=== PATIENT | male | born 1975 | race Caucasian/White ===

== ENCOUNTER 2023-11-24 13:39 | Emergency (ER) | payer MEDICAID, SELFPAY ==
[2023-11-24 13:49] VITALS: BP 123/74; PULSE 89; RESP 16; TEMP 37; O2SAT 99; BMI 22.3
--- NOTE | 2023-11-24 14:36 | XR_ITS ---
Patient: JULIAN LANE Facility:?[facility] Patient ID:?[id number] Site Patient ID:?[id number]. Site :?[id number] Study:?XRay-Extremity Left HAND-11/24/2023 2:48:27 PM Ordering Physician:?DR. BECERRA Final Report: Indication: Bruising and snuffbox and little finger Technique: Three views Comparison: None Findings/Impression: Bones: No evidence of acute fracture. Ossification adjacent to the base of the proximal phalanx of the left 3rd digit. Differential includes ossicle or old avulsion fragment. Joint spaces: Unremarkable. Soft tissues: Unremarkable. Dictated by Gene Gomez MD @ 11/24/2023 3:04:52 PM Signed by:?Gene Gomez MD @11/24/2023 3:04:52 PM (Electronic Signature)
--- NOTE | 2023-11-24 14:36 | ED_ITS ---
HPI - General Adult General Time Seen by Provider: 14:37 Date Seen: 11/24/23 Chief complaint: Extremity Pain/Injury, Upper Stated complaint: L hand pinky/palm discolored and cold-no trauma Time Seen by Provider: 11/24/23 14:24 Source: patient, family, RN notes reviewed and old records reviewed Mode of arrival: ambulatory Limitations: no limitations History of Present Illness HPI narrative: 48-year-old male who comes in today with discoloration of the left hand and left small finger along with cold finger. Patient notes for about a week he has had some bruising around the base of the thumb on the left, no known injury. Today noted that the 5th finger felt cold and was discolored, came to the emergency department. No known trauma, no forceful gripping or grasping that he can think of, no other injuries. No other bruising or bleeding elsewhere Exam Narrative: Exam Narrative: General: well nourished , NAD Head: Atraumatic and normocephalic ENT: External ears and external nose are normal Eyes: Conjunctiva clear, pupils are equal reactive, external ocular motions are intact Neck: Full spontaneous range of motion of the neck Lungs: No respiratory distress Musculoskeletal: No tenderness or deformity. Radial and ulnar pulses on the left are intact. Neurologic: No gross focal neurologic deficits Skin: Brownish purple discoloration on the dorsum of the left hand overlying the 2nd and 3rd metacarpals as well as 1st webspace. On the palmar surface of the hand, there is brownish purple discoloration over the thenar eminence with tenderness between the 2nd and 3rd metacarpals. The 5th finger is purplish discolored with capillary refill less than 2 seconds, sensation intact. Psych: Mood and affect are appropriate Const: Vital Signs, click to edit/add: Vital Signs - 24 hr 11/24/23 13:49 Temperature 98.6 F Pulse Rate [Left P ulse Oximeter] 89 Respiratory Rate 16 Blood Pressure [Ri ght Upper Arm] 123/74 Pulse Oximetry 99 Oxygen Delivery Me thod Room Air Course Course ED Course: Patient seen and examined, prior records reviewed. Patient complains of discoloration swelling of the left hand the around the thenar eminence and also of the left 5th finger. On exam, there appears to be some brownish purple disco loration on the palmar and dorsal surface of the hand ulnar aspect which looks consistent with old bruising or deep hematoma that is coming to the surface. The left finger is purplish discolored although capillary refill is less than 2 seconds and sensation is intact, there is no tenderness. It is little bit cooler than the right which may be due to bruising and swelling. X-rays are ordered but no history of trauma. If x-rays are negative, patient can be discharged with continued outpatient follow-up. Consider Raynaud's phenomenon but patient has no pallor nor cyanosis, did clarify with patient the demand when his finger felt cold it was not pale. Reevaluation(s) Time of Reevaluation #1: 15:00 Reevaluation #1: X-ray of the hand independently interpreted by me negative for acute findings. Patient is stable for discharge. Patient with discoloration of the left hand and left 5th finger. Consider Raynaud's phenomenon but never had pallor in the emergency department appears more purplish than cyanotic. No tenderness or history of trauma but does appear bruised. Patient may have had a spontaneous bleed of the intra thenar vasculature causing bruising on the dorsal surface some palmar aspect of the left hand. Patient is stable for discharge with outpatient follow-up. Vital Signs Vital signs: Initial Vital Signs Temperature 98.6 F 11/24/23 13:49 Temperature Source Temporal Artery Scan 11/24/23 13:49 Pulse Rate 89 11/24/23 13:49 Pulse Rhythm Regular 11/24/23 13:49 Pulse Strength 3+ Normal 11/24/23 13:49 Respiratory Rate 16 11/24/23 13:49 Blood Pressure 123/74 11/24/23 13:49 Blood Pressure Mean 90 11/24/23 13:49 Blood Pressure Position Sitting 11/24/23 13:49 Pulse Oximetry 99 11/24/23 13:49 Oxygen Delivery Method Room Air 11/24/23 13:49 Vital Signs Temperature 98.6 F 11/24/23 13:49 Pulse Rate 89 11/24/23 13:49 Respiratory Rate 16 11/24/23 13:49 Blood Pressure 123/74 11/24/23 13:49 Pulse Oximetry 99 11/24/23 13:49 Oxygen Delivery Method Room Air 11/24/23 13:49 Temperature 98.6 F 11/24/23 13:49 Pulse Rate 89 11/24/23 13:49 Respiratory Rate 16 11/24/23 13:49 Blood Pressure 123/74 11/24/23 13:49 Pulse Oximetry 99 11/24/23 13:49 Oxygen Delivery Method Room Air 11/24/23 13:49 Discharge Plan Discharge Clinical Impression: Discoloration of skin of hand, Ecchymosis on examination Patient Disposition: Home, Self-Care Condition: Stable Instructions: Ecchymosis (ED) Activity Level: No Restrictions Discharge Diet: Regular Follow Up/Referrals: Provider,Not a Local [Primary Care Provider] - Stand Alone Forms: MyHealth Info Instructions
== END 2023-11-24 15:24 | disposition home or self-care (01) ==
LOC: ED 15:15
PROVIDERS: Emergency Provider Family Medicine
DX: R23.8 Other skin changes (principal); R23.3 Spontaneous ecchymoses
CPT/HCPCS: 73130; 99283